=== PATIENT | female | born 1930 | race Caucasian/White ===

== ENCOUNTER 2016-09-14 22:14 | Emergency (ER) | payer MEDICARE, BC ==
[2016-09-14 21:54] LABS: URINE SOURCE CATH
[2016-09-14 21:56] LABS: MICRO INDICATED? NO; URINE APPEARANCE CLEAR; URINE BILIRUBIN NEG (NEG); URINE BLOOD NEG (NEG); URINE COLOR YELLOW; URINE GLUCOSE NEG (NORM); URINE KETONE NEG (NEG); URINE LEUKOCYTE ESTERASE NEG (NEG); URINE NITRATE NEG (NEG); URINE PROTEIN NEG (NEG); URINE SPECIFIC GRAVITY <=1.005 (1.003-1.035); URINE UROBILINOGEN 0.2 MG/DL (NORM)
[~2016-09-14 22:14] MED LIST: 24 HOUR ALLER15.8 ML; ACETAMINOPHEN; ALAWAY10 ML; ALLERGY RELIEF25 MG PO; APRESOLINE; ASPIRIN81 MG; ATENOLOL; BENADRYL25 M3; CALCIUM CARB/VIT D3; CARDURA1 MG PO; CARVEDILOL3.125 MG; CATAPRES0.1 MG PO; CELEBREX; CELECOXIB200 M1 PO; CHILDREN'S ALAWA5 ML OU; CLARITIN D; COUMADIN; DILTIAZEM 24HR240 M1; DILTIAZEM 24HR240 M2 PO; ELIQUIS2.5 MG; ELIQUIS2.5 MG PO; FENOFIBRATE145 M1; FEROSUL325 ( 651; FLORANEX T1 TAB.CHE3; FLUTICASONE; HCTZ; HYDRALAZINE HC100 MG PO; IMDUR-ER60 M2; IMODIUM2 MG PO; ISOSORBIDE MON120 M1 PO; LEVSIN0.125 M2; LEVSIN0.125 M2 SL; LORATADINE PO; LORTAB 5-325 M1 EACH PO; MAPAP500 M1 PO; MAXZIDE-25 MG1 UDTAB; MELATONIN5 M1; METOPROLOL TAR25 MG PO; MINOXIDIL2.5 MG; MINOXIDIL2.5 MG PO; NASOCORT AQ; NORVASC; NORVASC10 MG PO; PAROXETINE HCL20 M1 PO; PAXIL; PRILOSEC; PRILOSEC PO; ULTRAM; VIT B12; XYZAL5 MG; ZADITOR EYE DROPS
== END 2016-09-14 23:44 | disposition home or self-care (01) ==
LOC: SED 22:14
PROVIDERS: Emergency Medicine
DX: R33.9 Retention of urine, unspecified (principal); I50.9 Heart failure, unspecified; I25.10 Atherosclerotic heart disease of native coronary artery without angina pectoris; N18.9 Chronic kidney disease, unspecified; Z88.0 Allergy status to penicillin; Z88.1 Allergy status to other antibiotic agents; Z88.2 Allergy status to sulfonamides
CPT/HCPCS: 51702; 81003; 99283; 99284